=== PATIENT | male | born 1955 ===

== ENCOUNTER 2017-11-29 11:07 | Emergency (ER) | payer MEDICARE ==
[2017-11-29 11:29] VITALS: BP 152/100; PULSE 84; RESP 16; TEMP 98; O2SAT 98
--- NOTE | 2017-11-29 11:45 | C.PDOC ---
History Of Present Illness 62 yo male come in for evaluation of head injury, scalp laceration sustained MILLING OPERATOR. Pt reports, " was working in basement, slipped and hit a pipe on wall". Pt denies LOC, syncope, denies severe headache, dizziness, visual changes, focal deficits, neck pain, CP, SOB, dyspnea, palpitation, denies any other active complaints. Ambulate to ED for evaluation, not in any apparent distress. Time Seen by Provider: 11/29/17 11:17 Chief Complaint (Nursing): Abnormal Skin Integrity History Per: Patient Past Medical History Reviewed: Historical Data, Nursing Documentation, Vital Signs Vital Signs: Last Vital Signs Temp 98 F 11/29/17 11:12 Pulse 84 11/29/17 11:12 Resp 16 11/29/17 11:12 BP 152/100 H 11/29/17 11:12 Pulse Ox 98 11/29/17 11:12 - Medical History PMH: HTN Family History: States: No Known Family Hx - Social History Hx Alcohol Use: No Hx Substance Use: No - Immunization History Hx Tetanus Toxoid Vaccination: Yes (1 yr ago) Hx Influenza Vaccination: No Hx Pneumococcal Vaccination: No Review Of Systems Except As Marked, All Systems Reviewed And Found Negative. Constitutional: Negative for: Fever, Chills Eyes: Negative for: Vision Change ENT: Negative for: Ear Discharge, Nose Discharge, Throat Pain Cardiovascular: Negative for: Chest Pain, Palpitations Respiratory: Negative for: Cough, Shortness of Breath, Wheezing Gastrointestinal: Negative for: Nausea, Vomiting, Abdominal Pain, Diarrhea Musculoskeletal: Negative for: Neck Pain, Back Pain Skin: Positive for: Lesions Neurological: Negative for: Weakness, Numbness, Altered Mental Status, Headache , Dizziness Physical Exam - Physical Exam Appears: Well, Non-toxic, No Acute Distress Skin: Normal Color, Warm, Dry Head: Normacephalic, Laceration (occipital scalp 2 cm cutaneous laceration, linar, mild bloody oozing. No palpable deformity, no edema, no wound FB) Eye(s): bilateral: PERRL Ear(s): Bilateral: Normal Nose: No Flaring, No Discharge Oral Mucosa: Moist, No Drooling Tongue: Normal Appearing Lips: Normal Appearing Neck: Normal ROM, Trachea Midline, No Midline Cervical Tenderness, No Paracervical Tenderness, No Step Off Deformity, Supple Chest: Symmetrical, No Deformity Cardiovascular: Rhythm Regular, No Murmur, No JVD Respiratory: No Decreased Breath Sounds, No Accessory Muscle Use, No Stridor, No Wheezing Gastrointestinal/Abdominal: Soft, No Tenderness Back: No Vertebral Tenderness, No Paraspinal Tenderness Extremity: Normal ROM, No Tenderness, No Deformity, No Swelling Neurological/Psych: Oriented x3, Normal Speech, Normal Cognition, Normal Motor, Normal Sensation, Normal Reflexes ED Course And Treatment O2 Sat by Pulse Oximetry: 98 Pulse Ox Interpretation: Normal Progress Note: On re-evaluation, pt is afebrile, hemodynamicaly stable. Non- toxic. Ambulatory in ED with stable gait. Head: occipital laceration closed with stpales #3, no edema, no palpable deformity. Neck: SUpple, (-) midline tenderness. ENT: No acute findings. Lungs: CTA B/L, BS equal B/L. Abd: benign. Neuorlogicaly intact. Pt advised OBS for 48 hrs for any sign of head injury-return to ED immediately for re-evaluation. Advised on wound care. ref. to F/U with PMD in 2 days for re-eavl. Laceration - Laceration Repair Occipital scalp Wound Length (In cm): 2cm Description Of Wound: Linear (cutaneous) Anesthesia: Lidocaine 2% Wound Examination: Irrigated With Saline, No FB With Wound Exploration Wound Closure: Jose Daniel (#3) Suture Technique And Material Used: Interrupted Wound Complexity: Simple Disposition Counseled Patient/Family Regarding: Diagnosis, Need For Followup - Disposition Referrals: [facility] [Outside] Disposition: HOME/ ROUTINE Disposition Time: 11:50 Condition: STABLE Additional Instructions: Keep area clean, avoid water exposure for 2 days Tylenol as need for pain [place] removal in 7-10 days OBSERVE 48 HRS FOR ANY SIGN OF HEAD INJURY-INTRACTABLE HEADACHE, VOMITING, VISUAL CHANGES, FOCAL DEFICITS, CHANGE IN MENTAL STATUS OR ANY OTHER NEW CHANGES -RETURN TO ED IMMEDIATELY FOR RE-EVALUATION. RETURN IF ANY SIGN OF INFECTION. FOLLOW UP WITH PMD NEED IN 2 DAYS. Instructions: Minor Head Injury, Laceration Repair With Jose Daniel (DC) - Clinical Impression Clinical Impression: Head injury, Scalp laceration
== END 2017-11-29 12:00 | disposition home or self-care (01) ==
LOC: C.ER 11:07
DX: S01.01XA Laceration without foreign body of scalp, initial encounter (principal); W01.198A Fall on same level from slipping, tripping and stumbling with subsequent striking against other object, initial encounter; Y92.89 Other specified places as the place of occurrence of the external cause

== ENCOUNTER 2017-12-07 10:13 | Emergency (ER) | payer MEDICARE ==
[2017-12-07 10:19] VITALS: BMI 21.6
--- NOTE | 2017-12-07 11:01 | C.PDOC ---
History Of Present Illness 62 year old male with no past medical history presents to the ER for staple removal. Patient was previously here in the ER 11/29/17 for s/p head injury with scalp laceration. Patient stated he was working in the basement when he slipped and hit a pipe on wall and fell backwards. Patient denies headache, change in vision, blurry vision, LOC, syncope, neck pain, chest pain, shortness of breath or palpitations. Chief Complaint (Nursing): Suture/Staple Removal Past Medical History Vital Signs: Last Vital Signs Temp 97.8 F 12/07/17 10:19 Pulse 85 12/07/17 10:19 Resp 16 12/07/17 10:19 BP 121/90 12/07/17 10:19 Pulse Ox 96 12/07/17 11:03 - Medical History PMH: HTN Surgical History: Cholecystectomy Family History: States: Unknown Family Hx - Social History Hx Alcohol Use: No Hx Substance Use: No - Immunization History Hx Tetanus Toxoid Vaccination: Yes (1 yr ago) Hx Influenza Vaccination: No Hx Pneumococcal Vaccination: No Review Of Systems Constitutional: Negative for: Fever, Chills Cardiovascular: Negative for: Chest Pain, Palpitations Respiratory: Negative for: Shortness of Breath Gastrointestinal: Negative for: Nausea, Vomiting Genitourinary: Negative for: Dysuria Musculoskeletal: Negative for: Back Pain, Other (negative scalp pain ) Neurological: Negative for: Weakness, Numbness, Confusion, Headache Physical Exam - Physical Exam Appears: Well, Non-toxic, No Acute Distress Skin: Normal Color, Warm, Dry, Other (3 barry on the top of scalp) Head: Normacephalic, No Tenderness, No Swelling ED Course And Treatment O2 Sat by Pulse Oximetry: 96 Medical Decision Making Medical Decision Makin barry removed on scalp Disposition Discussed With : Jeffery Mcmahon Doctor Will See Patient In The: ED - Disposition Referrals: [facility] [Outside] [facility] [Outside] Disposition: HOME/ ROUTINE Disposition Time: 11:03 Condition: GOOD Additional Instructions: Patient to return to the ER if there are signs of infection. Patient to keep area clean and dry. 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 MD/DO has examined the patient and agrees with the treatment plan.
[2017-12-07 11:19] VITALS: BP 118/81; PULSE 72; RESP 18; TEMP 97.9; O2SAT 98
== END 2017-12-07 11:28 | disposition home or self-care (01) ==
LOC: C.ER 10:13
DX: S01.01XD Laceration without foreign body of scalp, subsequent encounter (principal); W01.0XXD Fall on same level from slipping, tripping and stumbling without subsequent striking against object, subsequent encounter; I10 Essential (primary) hypertension